=== PATIENT | male | born 1950 ===

== ENCOUNTER 2022-03-26 11:06 | Day surgery (SDC) | payer MEDICARE ==
[~2022-03-26] VITALS: Ht 182.9 cm; Wt 85.2 kg
[2022-03-26] MEDS ORDERED: TOPI15C (11:27)
== END 2022-03-26 13:32 | disposition home or self-care (01) ==
LOC: ORSCSDS 11:06
PROVIDERS: Internal Medicine Gastroenterology
PROC: 0DJD8ZZ Inspection of Lower Intestinal Tract, Via Natural or Artificial Opening Endoscopic (ICD-10-PCS; principal; 2022-03-26 12:15)
DX: Z12.11 Encounter for screening for malignant neoplasm of colon (principal); Z86.010 Personal history of colon polyps; K57.30 Diverticulosis of large intestine without perforation or abscess without bleeding
CPT/HCPCS: J2704; J7120

== ENCOUNTER 2024-09-12 08:52 | Day surgery (SDC) | payer MEDICARE ==
[~2024-09-12] VITALS: Ht 182.9 cm; Wt 91.8 kg
[2024-09-12] VITALS (14 sets, daily range): BP systolic 97–152; BP diastolic 70–92
[~2024-09-12 08:52] MED LIST: Acetaminophen 500 MG Tab PO SCH; CeFAZolin Sodium 2,000 MG in NS 100 ML IV SCH; Chlorhexidine Mouth Care 15 ML UDC MT SCH; Lactated Ringer's 1,000 ML IV SCH; OxyCODONE HCL 10 MG TABCR PO SCH; Ropivacaine 0.5% HCl/Pf 123.125 MG,EPINEPHrine HCL 0.25 MG,Ketorolac Tromethamine 15 MG... INFIL SCH; TADA10TA PO; TOPI100 PO; Tranexamic Acid 100 ML IV SCH; VALA500 PO; Vancomycin HCL 1,000 MG in NS 250 ML IV SCH
[2024-09-12] MEDS ORDERED: CeFAZolin Sodium 2,000 MG VIAL ONE (09:01)
--- NOTE | 2024-09-12 09:46 | NUR ---
History, Chart, Medications and Allergies reviewed before start of procedure. Lungs clear T/O to Auscultation. Patient confirms NPO status and agrees with scheduled surgery. Patient reports completing Chlorhexadine shower X2 prior to admission to hospital. Pre-Op teaching done. Pt verbalizes understanding.
[2024-09-12] MEDS ORDERED: Midazolam HCl 1MG / ML 2ML Vial ONE (11:07)
[2024-09-12] MEDS ORDERED: FentaNYL Citrate 50 MCG/ML 2 ML Injection ONE (11:07)
[2024-09-12] MEDS ORDERED: Bisacodyl 10 MG Supp PR PRN (11:15)
[2024-09-12] MEDS ORDERED: propofoL 60 ML IV ONE (11:18)
[2024-09-12] MEDS ORDERED: HYDROmorphone HCl/Pf 1MG SYR IV PRN ×2 (11:20→11:45)
[2024-09-12] MEDS ORDERED: DiphenhydrAMINE HCL 25 MG Cap PO PRN (11:20)
[2024-09-12] MEDS ORDERED: Magnesium Hydroxide Conc 10 ML UDC PO PRN (11:20)
[2024-09-12] MEDS ORDERED: OxyCODONE HCL 5 MG TAB PO PRN ×2 (11:25)
[2024-09-12] MEDS ORDERED: Promethazine HCl 25 MG Tab PO PRN (11:25)
[2024-09-12] MEDS ORDERED: Metoclopramide HCl 5MG / ML 2ML Vial IV PRN (11:25)
[2024-09-12] MEDS ORDERED: tadalafiL 5 MG Tab PO PRN (11:25)
[2024-09-12] MEDS ORDERED: Ondansetron HCl 2 MG / ML 2ML Vial IV PRN ×2 (11:25→11:45)
[2024-09-12] MEDS ORDERED: Dexamethasone Sod Phos 10 MG/ML 1ML VIAL ONE (11:27)
[2024-09-12] MEDS ORDERED: Lactated Ringer's 1,000 ML IV SCH (11:35)
[2024-09-12] MEDS ORDERED: FentaNYL Citrate 50 MCG/ML 2 ML Injection IV PRN (11:45)
[2024-09-12] MEDS ORDERED: Labetalol HCL 5 MG/ML 4ML Injection (Single Dose) IV PRN (11:45)
[2024-09-12] MEDS ORDERED: HydrALAZINE HCl 20 MG / ML 1ML Vial IV PRN (11:45)
[2024-09-12] MEDS ORDERED: propofoL 20 ML IV ONE (12:54)
[2024-09-12] MEDS ORDERED: ACET500 PO (14:57)
[2024-09-12] MEDS ORDERED: OXYC5 PO (14:58)
[2024-09-12] MEDS ORDERED: ASPI81CH PO (14:58)
[2024-09-12] MEDS ORDERED: ONDA4ODT MM (14:59)
[2024-09-12] MEDS ORDERED: SULTRIDS PO (14:59)
[2024-09-12] MEDS ORDERED: Acetaminophen 500 MG Tab PO SCH (16:00)
[2024-09-12] MEDS ORDERED: Ketorolac Tromethamine 15mg Vial IV SCH (18:00)
--- NOTE | 2024-09-12 18:39 | NUR ---
END OF SHIFT PT RESTING COMFORTABLY. VSS. UP WALKING INTERMITTENTLY WITH NURSING/PT. WILL CONTINUE TO MONITOR.
[2024-09-12] MEDS ORDERED: CeFAZolin Sodium 2,000 MG in NS 100 ML IV SCH (19:30)
[2024-09-12] MEDS ORDERED: Docusate Sodium 100 MG Cap PO SCH (21:00)
[2024-09-12] MEDS ORDERED: Topiramate 100 MG Tab PO SCH (21:00)
--- NOTE | 2024-09-12 21:11 | NUR ---
DISCHARGE NOTE- PT AMBULATORY AND HAS VOIDED. PT EDUCATED ON DISCHARGE INFORMATION AND MEDS. PT TRANSPORTED VIA WC TO POV. PT SIGNED DISCHARGE INSTRUCTIONS.
[2024-09-12] MEDS ORDERED: Vancomycin HCL 1,000 MG in NS 250 ML IV SCH (21:45)
[2024-09-13] MEDS ORDERED: Aspirin 81 MG Chew PO SCH (09:00)
[2024-09-13] MEDS ORDERED: Trimethoprim/Sulfamethoxazole DS Tab PO SCH (09:00)
== END 2024-09-12 20:45 | disposition home or self-care (01) ==
LOC: ORSCMMR 08:52 → ORD 10:45 → ORSCMMR 10:45 → SURS 14:14 → ORD 17:15 → ORSCMMR 20:45
PROVIDERS: Orthopaedic Surgery
PROC: 0SRC0JA Replacement of Right Knee Joint with Synthetic Substitute, Uncemented, Open Approach (ICD-10-PCS; principal; 2024-09-12 10:45)
DX: M17.11 Unilateral primary osteoarthritis, right knee (principal); Z79.899 Other long term (current) drug therapy
CPT/HCPCS: 73560-RT; 97116; 97162; 97530; A9270; C1713; C1776; J0171; J0690; J0735; J1100; J1885; J2250; J2704; J2795; J3010; J3370; J7050; J7120

== ENCOUNTER → 2025-03-22 | Outpatient (CLI) | payer MEDICARE ==
[~2025-03-22] MED LIST changes: +ACET500 PO; +ASPI81CH PO; -Acetaminophen 500 MG Tab PO SCH; -CeFAZolin Sodium 2,000 MG in NS 100 ML IV SCH; -Chlorhexidine Mouth Care 15 ML UDC MT SCH; -Lactated Ringer's 1,000 ML IV SCH; +ONDA4ODT MM; +OXYC5 PO; -OxyCODONE HCL 10 MG TABCR PO SCH; -Ropivacaine 0.5% HCl/Pf 123.125 MG,EPINEPHrine HCL 0.25 MG,Ketorolac Tromethamine 15 MG... INFIL SCH; +SULTRIDS PO; -Tranexamic Acid 100 ML IV SCH; -Vancomycin HCL 1,000 MG in NS 250 ML IV SCH
[2025-03-22 11:06] LABS: BASOPHILS ABSOLUTE AUTO 0.07 K/mm3 (0.00-0.23); BASOPHILS PERCENT AUTO 1 % (0-2); EOSINOPHILS ABSOLUTE AUTO 0.11 K/mm3 (0.00-0.68); EOSINOPHILS PERCENT AUTO 2 % (0-6); Hematocrit 44.9 % (37.0-53.0); Hemoglobin 15.3 g/dL (13.5-17.5); IMMATURE GRAN ABSOLUTE AUTO 0.01 K/mm3 (0.00-0.10); IMMATURE GRAN PERCENT AUTO 0 % (0-1); LYMPHOCYTES ABSOLUTE AUTO 1.65 K/mm3 (0.84-5.20); LYMPHOCYTES PERCENT AUTO 27 % (21-46); MONOCYTES ABSOLUTE AUTO 0.46 K/mm3 (0.16-1.47); MONOCYTES PERCENT AUTO 8 % (4-13); Mean Corpuscular HGB Conc 34.1 g/dL (31.5-36.5); Mean Corpuscular Volume 91 fL (80-100); NEUTROPHILS ABSOLUTE AUTO 3.84 K/mm3 (1.96-9.15); NEUTROPHILS PERCENT AUTO 63 % (41-73); NRBC ABSOLUTE 0.00 K/mm3 (0.00-0.02); NRBC Auto 0.0 /100 WBC (0.0-0.2); Platelet Count 260 K/mm3 (150-400); RDW Coefficient Variation 14.1 % (11.7-14.2); RDW Standard Deviation 46.6 fL (35.1-46.3)
[2025-03-22 11:18] LABS: Alanine Aminotransfer (ALT/SGP 31.0 U/L (12-78); Albumin, Blood 4.0 g/dL (3.4-5.0); Albumin/Globulin Ratio 1.1 (0.8-1.8); Anion Gap 14.0 mmol/L (3-11); Aspartate Aminotrans (AST/SGOT 23.0 U/L (12-37); Bilirubin, Total 0.6 mg/dL (0.1-1.0); Blood Urea Nitrogen 10.0 mg/dL (8-24); CO2, Blood 24.0 mmol/L (21-32); Calcium, Blood 9.0 mg/dL (8.5-10.1); Chloride, Blood 106.0 mmol/L (98-108); Creatinine, Blood 0.84 mg/dL (0.60-1.20); Globulin, Blood 3.7 g/dL (2.2-4.0); Glucose, Blood 130.0 mg/dL (70-99); Potassium, Blood 4.0 mmol/L (3.5-5.5); Sodium, Blood 140.0 mmol/L (136-145); Total Protein, Blood 7.7 g/dL (6.4-8.2)
== END ==
LOC: LAB SHORT 11:01 → LAB 11:01
PROVIDERS: Physician Assistant
DX: R07.9 Chest pain, unspecified (principal)
CPT/HCPCS: 80053; 84484; 85025